=== PATIENT | male | born 1930 | race Caucasian/White ===

== ENCOUNTER → 2018-07-28 | Outpatient (CLI) | payer OTHER ==
[~2018-07-28] MED LIST: ADULT LOW DOSE81 MG PO; APAP650 PO; BYSTOLIC10 MG PO; CILOSTAZOL 100100 MG PO; COUMADIN 5 MG TA5 M1 PO; COZAAR100 MG PO; Effient PO; FISH OIL SOFTG1 EACH PO; FLOMAX PO; GLUCOSAMINE1000 MG PO; LIPITOR80 MG PO; NIACIN 100MG T100 M1 PO; TRIAMTERENE-HC1 EAC1 PO
== END ==
LOC: HYPER 06:59
DX: T81.89XA Other complications of procedures, not elsewhere classified, initial encounter (principal); S60.812A Abrasion of left wrist, initial encounter; L98.422 Non-pressure chronic ulcer of back with fat layer exposed; M46.26 Osteomyelitis of vertebra, lumbar region; I25.10 Atherosclerotic heart disease of native coronary artery without angina pectoris; I48.0 Paroxysmal atrial fibrillation; I11.0 Hypertensive heart disease with heart failure; I50.9 Heart failure, unspecified; M86.8X8 Other osteomyelitis, other site; E78.5 Hyperlipidemia, unspecified; E03.9 Hypothyroidism, unspecified; G45.9 Transient cerebral ischemic attack, unspecified; G47.00 Insomnia, unspecified; R22.43 Localized swelling, mass and lump, lower limb, bilateral; F32.9 Major depressive disorder, single episode, unspecified; Z87.891 Personal history of nicotine dependence; Z86.73 Personal history of transient ischemic attack (TIA), and cerebral infarction without residual deficits; X58.XXXA Exposure to other specified factors, initial encounter; Y83.8 Other surgical procedures as the cause of abnormal reaction of the patient, or of later complication, without mention of misadventure at the time of the procedure; Y92.89 Other specified places as the place of occurrence of the external cause; Y93.89 Activity, other specified; Y99.8 Other external cause status